=== PATIENT | male | born 1955 | race Caucasian/White ===

== ENCOUNTER 2018-07-03 10:44 | Inpatient (IN) ==
[2018-07-03] MEDS ORDERED: *HR* FentaNYL (PF) 100 MCG/2 ML VIAL ONE (12:54)
[2018-07-03] MEDS ORDERED: 0.9 % Sodium Chloride 1,000 ML ONE (12:56)
[2018-07-03] MEDS ORDERED: Artificial Tears SOLN 15 ML BOTTLE BOTH EYES PRN (13:47)
[2018-07-03] MEDS ORDERED: Naloxone 0.4 MG/ML INJ IVP PRN (13:47)
[2018-07-03] MEDS ORDERED: Dextrose Gel 15 GM/37.5 ML TUBE PO PRN ×2 (13:52)
[2018-07-03] MEDS ORDERED: D5% in Water 1,000 ML IVC PRN (13:52)
[2018-07-03] MEDS ORDERED: Vancomycin 500 MG in 0.9 % Sodium Chloride Mini Bag 100 ML IVPB ONE (13:59)
[2018-07-03] MEDS ORDERED: Norepinephrine 4 MG in D5% in Water 250 ML IVC SCH (14:00)
[2018-07-03] MEDS ORDERED: Furosemide 40 MG/4 ML VIAL IVP ONE (14:00)
--- NOTE | 2018-07-03 14:09 | Pulmonology History & Physical ---
<Fan Roberts S - Last Filed: 07/03/18 17:44> Date of Encounter: 07/03/18 History of Present Illness HPI: Mr. Botello is a 63 year old male Medications and Allergies Apixaban [Eliquis] 5 mg PO BID 05/15/18 [History] Aspirin Enteric Coated [Aspirin EC] 81 mg PO DAILY 05/15/18 [History] Atorvastatin [Lipitor] 40 mg PO HS 05/15/18 [History] Cyanocobalamin (B-12) [Vitamin B12] 1,000 mcg PO DAILY 05/15/18 [History] Fenofibrate Nanocrystallized [Fenofibrate] 162 mg PO DAILY 05/15/18 [History] Ferrous Gluconate 324 mg PO DAILY 05/15/18 [History] Fluticasone/Vilanterol [Breo Ellipta 100-25 Mcg INH] 1 each IH DAILY 05/15/18 [History] Gabapentin [Neurontin] 300 mg PO TID 05/15/18 [History] Losartan [Cozaar] 100 mg PO DAILY 05/15/18 [History] Metformin HCl [Glucophage] 1,000 mg PO BID 05/15/18 [History] Metoprolol Tartrate [Lopressor] 50 mg PO BID 05/15/18 [History] Pantoprazole Sodium [Protonix] 40 mg PO DAILY 05/15/18 [History] Tiotropium [Spiriva] 18 mcg IH DAILY 05/15/18 [History] Albuterol Sulfate [Ventolin Hfa] 18 gm IH Q4HR PRN 07/03/18 [History] Dulaglutide [Trulicity] 0.75 mg SQ QWEEK 07/03/18 [History] Insulin Degludec [Tresiba Flextouch U-100] 20 unit SQ DAILY 07/03/18 [History] amLODIPine [Norvasc] 5 mg PO DAILY 07/03/18 [History] Allergy/AdvReac Type Severity Reaction Status Date / Time No Known Allergies Allergy Verified 05/04/18 00:32 All Systems: The remainder of the systems were reviewed and are negative Physical Examination Vital Signs: Vital Signs, Last 4 Hours Temp Pulse Resp BP Pulse Ox 07/03/18 14:00 86 26 100/70 98 07/03/18 13:07 89 28 109/71 100 07/03/18 12:52 32 95 07/03/18 12:25 95.2 F L 86 37 113/81 96 Results - Laboratory Findings Abnormal lab findings: Abnormal lab results POC Glucose 369 mg/dL (70-99) H 07/03/18 12:13 Hemoglobin A1c 7.5 % (-5.6) H 07/03/18 14:25 Lactic Acid 2.3 mmol/L (0.5-2.2) H 07/03/18 14:25 Troponin I 1.40 ng/mL (< 0.04) H* 07/03/18 14:25 - Attending Attestation I saw and evaluated this patient and my medical decision-making was reviewed with the Resident Physician. I agree with the documented findings, disposition and treatment plan as described except to the extent set forth below. We independently had [id number] contact with the patient I spent 50 minutes of Critical Care time with this patient. It involved decision making of high complexity to assess, manipulate, and support vital organ system failure and/or to prevent further life threatening deterioration of the patient's condition. The time involved in the performance of separately reportable procedures was not counted toward critical care time. Patient seen and examined at bedside Labs, radiology, chart personally reviewed. Management was reviewed during multidisciplinary critical care rounds. 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 Pulm: Patient has oxygenation and ventilation issues most likely due to cardiogenic pulmonary edema complicated by aspiration pneumonia to do low tidal volume strategy to repeat arterial blood gas analysis. Cards: Patient has end STEMI complicated by systolic heart failure to consult cardiology to start on heparin drip. EKG shows active ST-T changes with acute ischemic changes. Patient currently hemodynamically stable if needed should be started on Levophed. FEN-GI: Nothing by mouth to start on PPI Renal: Labs and output reviewed ID: No with broad-spectrum antibiotics for multifocal pneumonia Heme/Onc: Labs reviewed Endo: Glucose Monitored Integ/MSK: Skin Care per routine ICU Nursing Protocol to prevent ulcers. Lines: All lines examined without evidence of infection : Dispo: Critically high suspicion for anoxic brain injury CODE: Full Code <Chelsy Hidalgo - Last Filed: 07/03/18 18:43> Date of Encounter: 07/03/18 Time of Encounter: 13:00 Assessment and Plan (1) Cardiac arrest Current visit: Yes Status: Acute Cardiac arrest -Achieved ROSC from PEA after 30 minutes of CPR by ED staff - reports she performed 25 minutes of CPR prior to EMS arrival -Patient intubated in [place] ED -Etiology unclear however may be related to cardiac. ST depressions on V4-V6 on EKG in [place]. -Labs significant for WBC 16.8, Hgb 10.5, lactic acid 7.8, troponin 0.98, creatinine of 1.41 -ABG shows respiratory acidosis of 7.04, CO2 90. Bicarbonate 25 -CT head shows chronic changes, no acute abnormal -CXR and CT chest performed and shows large right pleural effusion with progression of multifocal ground glass opacities which may be related to CHF or multifocal PNA Plan -Repeat troponin, lactic acid ordered and pending -Repeat EKG to further evaluate ischemia -Hypothermic protocol -Neuro consulted for EEG and evaluation for anoxic brain injury -Currently in NSR, requiring levophed for pressor support. See procedure note -Received 1L NS fluid resuscitation however will not give 30 mL/kg due to suspected CHF exacerbation (2) Septic shock Current visit: Yes Status: Acute Septic Shock - SIRS criteria with hypothermia at 95.2, RR 30s, WBC of 16.8 -Lactic acid at 7.8 in [place], trended to 2.3 -Suspect that this may be more related to cardiac shock vs septic -Suspected source: pulmonary with aspiration possible -Causative organism, unclear -Recent hospital admissions with previous PNA -CT and CXR findings as above -No previous cultures Plan -Blood cultures x2 -Sputum and UA with reflex cultures -Start vancomycin, zosyn, Levaquin, day 1 -Trend lactic acid -Fluids: initially 1L NS bolus but will hold remainder due to CHF -Strep pneumonia and legionella Ag -Central line placed and requiring levophed (3) Acute exacerbation of CHF (congestive heart failure) Current visit: Yes Status: Acute CHF exacerbation -Known history of CHF, most recent Echo on 05/16/18: EF 40-45% with moderately dilated LV. Moderate global systolic dysfunction -CXR 07/03/18: moderate right and mild left diffuse mixed interstitial and airspace opacities with small bilateral effusions, right greater than left -CT chest 07/03/18: moderate to large right-sided pleural effusion and trace left pleural effusion; interval progression multifocal ground-glass opacities in lungs bilaterally with mid to lower lung predominance; acute nondisplaced bilateral 2nd-8th anterior rib fractures related to recent CPR - BNP 1399 -Received 1L NS fluid resuscitation, but will not give 30 mL/kg due to suspected CHF exacerbation PLAN: - Repeat echocardiogram - Monitor I/O's Qualifiers: Heart failure type: systolic Qualified Code(s): I50.23 - Acute on chronic systolic (congestive) heart failure (4) NSTEMI (non-ST elevated myocardial infarction) Current visit: Yes Status: Acute Heparin gtt discussed with cardiology who recommends against it Troponins trending upwards: 0.98, 1.4, and 1.78--most likely the result of cardiac arrest ST depressions in leads V4-V6 Repeat EKG did not show worsening ST depressions Prognosis discussed with family, desire conservative management Plan: -Continue trending troponins (5) Acute and chronic respiratory failure Current visit: Yes Status: Acute -Most likely due to cardiogenic pulmonary edema, complicated by aspiration PNA and history of COPD -ABG shows respiratory acidosis of 7.04, CO2 90. Bicarbonate 25 -COPD on home oxygen -Intubated and on mechanical ventilation PLAN: -Repeat ABG - Lasix 40mg IV given x1 -Continue ventilatory support -As above for CHF Qualifiers: Respiratory failure complication: hypoxia and hypercapnia Qualified Code(s): J96.21 - Acute and chronic respiratory failure with hypoxia; J96.22 - Acute and chronic respiratory failure with hypercapnia (6) COPD (chronic obstructive pulmonary disease) Current visit: Yes Status: Acute Qualifiers: COPD type: unspecified COPD Qualified Code(s): J44.9 - Chronic obstructive pulmonary disease, unspecified (7) Diabetes Current visit: Yes Status: Chronic Sliding scale insulin Qualifiers: Diabetes mellitus type: type 2 Diabetes mellitus exterminator insulin use: unspecified exterminator insulin use status Diabetes mellitus complication status: with unspecified complications Qualified Code(s): E11.8 - Type 2 diabetes mellitus with unspecified complications (8) Afib Current visit: Yes Status: Chronic Eliquis 5mg PO BID at home Rate controlled Anticoag was discussed with cardiology who recommends not using heparin gtt Plan -Sub Q heparin for now until home meds verified -Monitor coags for hypothermia protocol Qualifiers: Atrial fibrillation type: paroxysmal Qualified Code(s): I48.0 - Paroxysmal atrial fibrillation (9) HCAP (healthcare-associated pneumonia) Current visit: Yes Status: Acute As above for Sepsis (10) DVT prophylaxis Current visit: Yes Status: Acute Sub Q heparin History of Present Illness Chief complaint: cardiac arrest HPI: Mr. Botello is a 63-year-old male with PMH atrial fibrillation on Eliquis, CHF, COPD on home oxygen, CAD, [place] (2 cardiac stents), CVA, diabetes, HLD, HTN, venous stasis who presented to [place] ED by EMS after cardiac arrest with ROSC. Arrest was witnessed at home by patients , who provided CPR, prior to EMS arrival. Patient rhythm on EMS arrival was PEA, he was intubated and received 2 rounds epinephrine before return of pulse. He lost his pulse again on arrival to ED and CPR was initiated, pulse returned, BP reported to be 149/89 and was in sinus rhythm. He was transferred to [facility] for further evaluation and management. Initial CBC in [place] showed WBC 16.8, no bands, hemoglobin 10.5, hematocrit 34.9, platelets 254. Metabolic panel notable for creatinine 1.41, glucose 423, lactic acid 7.8, troponin 0.98. ABG significant for pH 7.04, PCO2 90, PO2 65, and bicarbonate 24. Initial chest x-ray shows moderate right and mild left diffuse mixed interstitial and airspace opacities with small bilateral effusions, right greater than left. Head CT showed no acute intracranial hemorrhage. CT chest shows moderate to large right-sided pleural effusion and trace left pleural effusion as well as interval progression of multifocal ground-glass opacities in lungs bilaterally with mid to lower lung predominance; acute nondisplaced bilateral 2nd-8th anterior rib fractures related to recent CPR. Patient is currently intubated and unable to participate in interview, additional history gathered from patients and chart review. Per the patients , he had been up all night with elevated heart rate, slightly increased shortness of breath from baseline, and low oxygen saturation measured with home pulse ox. Patient was not complaining of chest pain, fevers, chills, or cough increased from baseline. She reports patient has been eating and drinking normally without difficulty or complaints of choking. Of note, patient had a stroke at the end of March 2018 affecting the right side and required PEG placement, which he hasnt been using recently and was scheduled to have discontinued next week. He was admitted early May for treatment of HCAP, recurrent aspiration PNA, and right-sided pleural effusion. Past Med Surg Social Fam HX - Past Medical History Medical history: atrial fibrillation, CHF, COPD, coronary artery disease, CVA, diabetes, hyperlipidemia, hypertension, venous stasis Psychiatric history: no psych history - Past Surgical History Surgical History: other Additional surgical history: Cardiac cath 2 Heart stents - Social History Smoking Status: Current every day smoker Smokeless Tobacco Status: No Alcohol use: unknown Drug use: none ROS unobtainable: due to endotracheal tube, due to mental status All Systems: The remainder of the systems were reviewed and are negative Physical Examination Vital Signs: Vital Signs, Last 4 Hours Temp Pulse Resp BP Pulse Ox 07/03/18 13:07 89 28 109/71 100 07/03/18 12:52 32 95 07/03/18 12:25 95.2 F L 86 37 113/81 96 Eyes: nonicteric ENT: other (Endotrachial tube present) Neck: supple, no JVD Effort: other (labored, on mechanical ventilation) Auscultation: bilateral: diminished breath sounds (right > left) Cardiovascular: other (regular rate, rhythm appears regular) Gastrointestinal: absent bowel sounds, soft, non-tender, other (distended) Extremities: no cyanosis, no clubbing, no ischemia or petechiae, cool, edema (1+ pitting bilaterally to mid-blackwood) Musculoskeletal: no deformities unable to assess due to mental status (Doesn't open eyes or follow commands; slight response to noxious stimuli), other (pupils unequal size, both reactive to light--left pupil slower to react) Results - Laboratory Findings Abnormal lab findings: Abnormal lab results POC Glucose 369 mg/dL (70-99) H 07/03/18 12:13
--- NOTE | 2018-07-03 14:12 | Procedure Note ---
<Fan Roberts S - Last Filed: 07/03/18 14:16> Procedure: I was present during the entire procedure assisted in critical portions of the procedure. <Pj Mancilla - Last Filed: 07/03/18 14:21> Date of procedure: 07/03/18 Pre-op diagnosis: Hypotension, s/p arrest Post-op diagnosis: same Procedure: Procedure Note: Central Venous Catheter Insertion Indication: Hypotension, arrest Attending Physician: Dr. Roberts Underwriting Assistant: Chelsy Hidalgo Assist: Pj Mancilla Consent: Detailed explanation of the procedure, treatment options, risks including but not limited to infection and bleeding, and benefits were explained to the and next of kin. A written informed consent was obtained. Technique: A time out was preformed identifying the correct procedure, the correct location with the nursing staff. The right neck was prepped with 2% chlorhexidine and draped with a full length sterile sheet in the usual fashion. The right internal jugular vein was accessed under ultrasound guidance with an 18 gauge thin wall needle. A triple lumen was inserted via the seldinger technique. Blood was withdrawn from all lumens and flushed with normal saline. The catheter was sutured in place and a sterile dressing was applied over the site prior to removal of drapes. The patient tolerated the procedure well and there were no complications. Chest x ray: No pneumothorax and end of catheter above right atrium EBL: 5 mL Complication: None Anesthesia: IV sedation Surgeon: Chelsy Hidalgo Was there an occupational therapist assistant present: Yes Tube Winder: Pj Mancilla Estimated blood loss (cc): 5 Specimen: none Pathology: none sent Condition: critical Disposition: ICU
[2018-07-03] MEDS ORDERED: Perflutren Lipid Microsphere 1.3 ML in 0.9 % Sodium Chloride 8.7 ML IVP ONE (14:33)
--- NOTE | 2018-07-03 14:38 | Neurology - Consult Note ---
Addendum entered and electronically signed by Fareed Armando MD 07/03/18 16:25: Patient seen and examined in the presence of Dr. Silvestre Velázquez and case discussed, and imaging studies reviewed together. I agree with his history taking, physical examination, assessment and plan. In [facility], the patient is a 63 year old man man with PMH significant for DM, HTN, CAD, atrial fibrillation, obesity who developed cardiopulmonary arrest, with cardiac down time about 25 minutes per medical team, who brought in from outside hospital intubated. Patient was successfully resuscitated and upon arrival to [facility] he has been having intermittent myoclonic jerking movement involving his whole body with features of decerebrate posturing every 5-8 seconds. Patient remained unr esponsive and been kept on Propofol sedation. Neurology was consulted to assess brain function and neurological prognosis. EEG was obtained and it was performed after discontinuation of Propofol 15-20 minutes. Patient is euthermic. EEG pattern showed diffuse persistent burst - suppression with ratio of 1:6-8 seconds with myoclonic jerking synchronous to his burst activity on the EEG. CT of head showed no acute bleeding but loss of white kincaid matter differentiation noted. Neurologically patient remains unresponsive to painful and verbal stimuli. Notices intermittent myoclonic jerking involving limbs and whole body with features of decerebrate posturing. pupils are midline and able to keep his eye closed, possible gag/cough reflexes. Limbs flaccid paralysed no other movements other than the myoclonic jerks The patient' physical examination, course of disease, EEG and CT of head findings are consistent with severe anoxic brain injury. Neurological prognosis is very poor. Impression and EEG results discussed with the patient and family members. Original Note: Date of Encounter: 07/03/18 Time of Encounter: 14:38 Assessment and Plan (1) Unresponsive state Current Visit: Yes Status: Acute - Currently unresponsive to verbal/tactile stimuli; on mechanical ventilation - Patient presented after going into cardiac arrest - Patient received CPR for approximately 25 minutes - Patient had return of spontaneous circulation with an elevated pulse - On arrival, patient was nonresponsive - Patients condition is possibly secondary to anoxic brain injury; although seizure activity cannot be ruled out at this time - Patient has had purposeless myoclonic jerks since arrival - Initially started on Levophed for hypotension and was sedated with propofol - Patient continued to have myoclonic jerks despite sedation Plan: - EEG is ordered to assess brain activity - Further management per pulmonology/critical care History of Present Illness HPI: Mr. Botello is a 63 year old male with a PMH of COPD O2 dependent, CHF, atrial fibrillation, diabetes mellitus, previous CVA requiring PEG tube placement, and previous NH Who presented to the ED in full cardiac arrest with ROSC after a witnessed arrest at home. Patient had reportedly collapsed on the bed earlier, and CPR was performed by EMS prior to arrival. She they confirmed cardiac arrest with a PEA rhythm. EMS was able to intubate the patient and establish IV access. 2 rounds of epinephrine, 1 amp of D50, and 2 A of bicarbonate, and 1 amp of calcium were given. On arrival, no initial pulse was able to be confirmed by staff, and CPR was continued. Patient received a second dose of epinephrine, on second pulse check patient appeared to be in cardiac arrest. On the next pulse check, palpable pulses present with a rate of 104. Per the patients , patient had been up all night with a high heart rate, low O2 saturation, and increased difficulty in breathing. Patients blood pressure dropped, and patient was started on levophed. Chest x-ray demonstrated pulmonary consolidation representing a possible pneumonia with a large right- sided pleural effusion. 12-lead EKG showed some ST depression in V4 and V5. Vital signs on arrival to [facility] are as follows: Temperature 96.2, pulse 91, respiratory rate 18, blood pressure 116/76, O2 sat 90. Patient was subsequently intubated and placed on mechanical ventilation. Central line was placed. Laboratory analysis demonstrated an elevated white count of 16.8. Arterial blood gas was performed, demonstrated an ABG pH of 7.04, PCO2 90, O2 65, sodium level was 134, creatinine 1.41, lactic acid 7.8, and troponin 0.98. Patient was seen and examined at bedside; review of systems is unobtainable due to patients mental status. Patients is at bedside; she reported that he has had increased shortness of breath from his baseline and low O2 saturation measured on pulse ox before he went into cardiac arrest. Patient is observed to have multiple myoclonic jerks. Past Med Surg Social Fam HX - Past Medical History Medical history: atrial fibrillation, CHF, COPD, coronary artery disease, CVA, diabetes, hyperlipidemia, hypertension, venous stasis Psychiatric history: no psych history - Past Surgical History Surgical History: other Additional surgical history: Cardiac cath 2 Heart stents - Social History Smoking Status: Current every day smoker Smokeless Tobacco Status: No Alcohol use: unknown Drug use: none Medications and Allergies Apixaban [Eliquis] 5 mg PO BID 05/15/18 [History] Aspirin Enteric Coated [Aspirin EC] 81 mg PO DAILY 05/15/18 [History] Atorvastatin [Lipitor] 40 mg PO HS 05/15/18 [History] Cyanocobalamin (B-12) [Vitamin B12] 1,000 mcg PO DAILY 05/15/18 [History] Fenofibrate Nanocrystallized [Fenofibrate] 162 mg PO DAILY 05/15/18 [History] Ferrous Gluconate 324 mg PO DAILY 05/15/18 [History] Fluticasone/Vilanterol [Breo Ellipta 100-25 Mcg INH] 1 each IH DAILY 05/15/18 [History] Gabapentin [Neurontin] 300 mg PO TID 05/15/18 [History] Losartan [Cozaar] 100 mg PO DAILY 05/15/18 [History] Metformin HCl [Glucophage] 1,000 mg PO BID 05/15/18 [History] Metoprolol Tartrate [Lopressor] 50 mg PO BID 05/15/18 [History] Pantoprazole Sodium [Protonix] 40 mg PO DAILY 05/15/18 [History] Tiotropium [Spiriva] 18 mcg IH DAILY 05/15/18 [History] Albuterol Sulfate [Ventolin Hfa] 18 gm IH Q4HR PRN 07/03/18 [History] Dulaglutide [Trulicity] 0.75 mg SQ QWEEK 07/03/18 [History] Insulin Degludec [Tresiba Flextouch U-100] 20 unit SQ DAILY 07/03/18 [History] amLODIPine [Norvasc] 5 mg PO DAILY 07/03/18 [History] Allergy/AdvReac Type Severity Reaction Status Date / Time No Known Allergies Allergy Verified 05/04/18 00:32 ROS unobtainable: due to mental status All Systems: The remainder of the systems were reviewed and are negative Physical Examination - Vital Signs Vital Signs: Initial Vital Signs Temp Pulse Resp BP Pulse Ox 95.2 F L 86 37 113/81 96 07/03/18 12:25 07/03/18 12:25 07/03/18 12:25 07/03/18 12:25 07/03/18 12:25 - Exam Exam: Eyes: Fixed pupils Lungs: Labored breathing, currently on mechanical ventilation, diminished breath sounds Other, myoclonic jerks - Neurologic Sensorimotor examination: other (Myoclonic jerks) Posture: other (Unable to assess) Reflex and gait examination: other (Unable to assess) Mental Status Examination: no spontaneous eye opening to voice or tactile stimulation Results - Laboratory Findings Abnormal lab findings: Abnormal lab results POC Glucose 369 mg/dL (70-99) H 07/03/18 12:13 Consult Discharge Plan - Plan Referrals: NONE,PCP [Primary Care Provider] -
[2018-07-03] MEDS: Levofloxacin 750 MG/150 ML 750 MG/150 ML BAG IVPB SCH (14:44)
[2018-07-03 14:54] LABS: Estimated Average Glucose 169 mg/dl; Hemoglobin A1C 7.5 %
[2018-07-03] MEDS ORDERED: *HR* Midazolam HCl 2 MG/2 ML VIAL IVP ONE (14:55)
[2018-07-03] MEDS: Insulin LISPRO 300 UNITS/3 ML VIAL SQ SCH ×3 (14:59→23:06)
[2018-07-03] MEDS: Artificial Tears SOLN 15 ML BOTTLE BOTH EYES SCH ×3 (15:00→23:05)
[2018-07-03] MEDS ORDERED: *HR* Heparin 5,000 UNIT/ML VIAL IVP PRN ×2 (15:15)
[2018-07-03] MEDS ORDERED: *HR* Heparin 5,000 UNIT/ML VIAL IVP ONE (15:15)
[2018-07-03] MEDS ORDERED: Heparin 25,000 UNIT/500 ML D5W 25,000 UNIT/500 ML BAG IVC SCH (15:15)
[2018-07-03 15:30] LABS: Bilirubin,Urine Negative (Negative); Blood,Urine Large (Negative); Clarity,Urine Turbid (Clear); Color,Urine Yellow (Yellow); Glucose,Urine (UA) 100 mg/dL (Normal); Ketones,Urine Negative (Negative); Leukocyte Esterase,Urine Trace (Negative); Nitrite,Urine Negative (Negative); PH,Urine 5.5 pH Units (5.0-8.0); Protein,Urine >=300 mg/dL (Neg-Trace); Specific Gravity,Urine 1.017 (1.010-1.025); Urobilinogen,Urine Normal (Normal)
[2018-07-03 15:32] LABS: Squamous Epithelial Cell,Urine Many per lpf (None-Few)
[2018-07-03 15:59] LABS: Bacteria,Urine Few per hpf (None-Few); Granular Casts,Urine Few per lpf (None Seen)
[2018-07-03 16:00] LABS: RBC,Urine 15-30 per hpf (0-3); WBC,Urine 15-30 per hpf (0-3)
[2018-07-03 16:13] LABS: ABG Base Excess 0 mEq/L (-2 to 3); ABG HCO3 26 mEq/L (21-27); ABG Oxygen Saturation 90 % (95-98); ABG PCO2 47 mmHg (35-45); ABG PH 7.35 pH Units (7.32-7.45); ABG PO2 61 mmHg (85-104); ABG TCO2 28 mEq/L (20-26); Blood Gas Modality ASSIST CONTROL; Blood Gas PEEP 5 cm H2O; Blood Gas Respiration Rate 12; Blood Gas VT 500 cc
--- NOTE | 2018-07-03 16:23 | EEG/EMG/Oth Biometrics Report ---
EEG Procedure Report Date of procedure: 07/03/18 EEG Procedure: Routine EEG Procedure Note: Medication: no anticonvulsants listed. Propofol drip was discontinued approximately 15-20 units prior to EEG recording. Report: This EEG was acquired with standard international 10-20 electrode placement system with EKG recording. The background activity during this EEG was replaced by diffuse suppression with intermittent burst activity. The burst activity last around one second in duration and followed by prolonged diffuse suppression lasting more than 6-8 seconds in duration. No reactivity seen during the recording. Photic stimulation produced no abnormalities. HV not performed during this study. EKG tracing showed no sinus rhythm. Impression: This is a severely abnormal EEG showing burst-suppression pattern with burst:suppression ratio of 1 second of burst : 6-8 seconds of suppression Clinical Correlation: This EEG is consistent with severe diffuse neuronal dysfunction characterized by presence of burst suppression pattern with burst:suppression ratio of 1:6-8 seconds. The pattern is usually associated with poor neurological prognosis. Please note, the pattern can be seen in medically induced coma with sedatives and hypothermia. Clinical correlation advised. The EEG result is communicated with the primary medical team and family members.
[2018-07-03 17:26] LABS: INR 1.3; Prothrombin Time 14.4 Seconds (9.4-12.1)
[2018-07-03 17:27] LABS: Activated Partial Thrombo Time 34.5 Seconds (26.0-36.0)
--- NOTE | 2018-07-03 17:31 | Event Note ---
Date of Encounter: 07/03/18 Time of Encounter: 16:20 Results from EEG returned and this was discussed with neurology. Pattern suggests burst suppression with overall poor prognosis and likely severe anoxic brain injury. This was discussed with the family. If the family's wishes at this time that patient's CODE STATUS will be changed to DNR CCA. Patient remains intubated and sedated with propofol and fentanyl will be added for extra comfort. Patient's family is waiting for additional son to arrive before they make further decisions regarding his care and possible withdrawal of care. We did discuss options for further care and patient state that they would not like to be aggressive at this time and continue current course. All questions were answered.
[2018-07-03] MEDS: FentaNYL (PF) 1,000 MCG in 0.9 % Sodium Chloride 80 ML IVC SCH (17:44)
[2018-07-03] MEDS: Vecuronium 50 MG in 0.9 % Sodium Chloride 200 ML IVC SCH (17:59)
[2018-07-03] MEDS: *HR* Heparin 5,000 UNIT/ML VIAL SQ SCH (17:59)
[2018-07-03] MEDS: Piperacillin/Tazobactam 3.375 GM in 0.9 % Sodium Chloride Mini Bag 100 ML IVPB SCH (19:30)
[2018-07-03] MEDS: Chlorhexidine Rinse 15 ML MOUTHWASH MM SCH (19:31)
[2018-07-04] MEDS: Vecuronium 50 MG in 0.9 % Sodium Chloride 200 ML IVC SCH (02:02)
[2018-07-04] MEDS: Piperacillin/Tazobactam 3.375 GM in 0.9 % Sodium Chloride Mini Bag 100 ML IVPB SCH ×2 (03:01→11:33)
[2018-07-04] MEDS: Artificial Tears SOLN 15 ML BOTTLE BOTH EYES SCH ×4 (03:01→16:21)
[2018-07-04 03:45] LABS: Basophils % 0.1 %; Eosinophils # 0.1 K/mcL (0.0-0.6); Eosinophils % 0.5 %; Hematocrit 31.2 % (37.5-50.1); Hemoglobin 9.6 g/dL (12.9-16.9); Immature Granulocytes % 0.6 % (0-4); Lymphocytes # 1.5 K/mcL (0.6-4.6); Lymphocytes % 13.8 %; Mean Corpuscular HGB Conc 30.8 g/dL (31.6-35.5); Mean Corpuscular Hemoglobin 25.3 pg (28.0-33.3); Mean Corpuscular Volume 82.1 fL (83.0-100.0); Mean Platelet Volume 9.6 fL (9.4-12.4); Monocytes # 0.7 K/mcL (0.0-1.3); Neutrophils # 8.3 K/mcL (1.6-8.9); Platelet Count 244 K/mcL (140-400); Red Cell Distribution Width 17.4 % (11.5-14.5)
[2018-07-04 03:51] LABS: INR 1.3; Prothrombin Time 14.8 Seconds (9.4-12.1)
[2018-07-04 03:58] LABS: BUN/Creatinine Ratio 21 (6-26); Blood Urea Nitrogen 27 mg/dL (8-23); Calcium 8.8 mg/dL (8.6-10.3); Carbon Dioxide 28 mEq/L (23-29); Chloride 105 mEq/L (98-107); Glucose 100 mg/dL (70-105); Osmolality,Calculated 295 (280-300); Sodium 140 mEq/L (136-145); Triglycerides 161 mg/dL (< 150); eGFR For Non-African Americans 56 (> 60)
[2018-07-04 04:51] LABS: ABG Base Excess 1 mEq/L (-2 to 3); ABG HCO3 28 mEq/L (21-27); ABG Oxygen Saturation 93 % (95-98); ABG PCO2 59 mmHg (35-45); ABG PH 7.29 pH Units (7.32-7.45); ABG PO2 76 mmHg (85-104); ABG TCO2 30 mEq/L (20-26); Blood Gas Modality ASSIST CONTROL; Blood Gas PEEP 10 cm H2O; Blood Gas Respiration Rate 12; Blood Gas VT 500 cc
[2018-07-04] MEDS: Insulin LISPRO 300 UNITS/3 ML VIAL SQ SCH (05:02)
[2018-07-04] MEDS: *HR* Heparin 5,000 UNIT/ML VIAL SQ SCH (05:07)
[2018-07-04] MEDS ORDERED: Furosemide 40 MG/4 ML VIAL IVP SCH (08:00)
--- NOTE | 2018-07-04 08:03 | Pulmonology Progress Note ---
<Pj Mancilla - Last Filed: 07/04/18 11:36> Date of Encounter: 07/04/18 Time of Encounter: 07:58 Assessment and Plan (1) Cardiac arrest Current Visit: Yes Status: Acute Cardiac arrest -Achieved ROSC from [facility] after 30 minutes of CPR by ED staff - reports she performed 25 minutes of CPR prior to EMS arrival -Patient intubated in [facility] ED -Etiology unclear however may be related to cardiac. ST depressions on V4-V6 on EKG in [facility]. Persistent on repeat EKG here -Labs significant for WBC 16.8, Hgb 10.5, lactic acid 7.8, troponin 0.98, creatinine of 1.41 -ABG shows respiratory acidosis of 7.04, CO2 90. Bicarbonate 25 -CT head shows chronic changes, no acute abnormal -CXR and CT chest performed and shows large right pleural effusion with progression of multifocal ground glass opacities which may be related to CHF or multifocal PNA - Troponin peaked at 2.44, most recently 1.95 - ABG improved on Vent. pH most recently 7.29 with CO2 59. Bicarb 28 - Lactic acid trened and most recently 1.3 - EEG shows burst suppression pattern, overall very poor prognosis and sign of severe anoxic brain injury. Family aware. Plan -Continue Hypothermic protocol -Neuro consulted and following. -Currently in NSR, no longer requiring levophed for pressor support. See procedure note -Received 1L NS fluid resuscitation however will not give 30 mL/kg due to suspected CHF exacerbation Per , family meeting to happen today regarding withdrawal of care. Will continue supportive care until further decision is made. (2) Acute and chronic respiratory failure Current Visit: Yes Status: Acute Likely secondary to CHF exacerbation vs PNA with possible aspiration component. -Known history of CHF, most recent Echo on 05/16/18: EF 40-45% with moderately dilated LV. Moderate global systolic dysfunction - Stat Echo performed yesterday 07/04/18. EF 40%, mild LVH, moderate global systolic dysfunction. -CXR 07/03/18: moderate right and mild left diffuse mixed interstitial and airspace opacities with small bilateral effusions, right greater than left -CT chest 07/03/18: moderate to large right-sided pleural effusion and trace left pleural effusion; interval progression multifocal ground-glass opacities in lungs bilaterally with mid to lower lung predominance; acute nondisplaced bilateral 2nd-8th anterior rib fractures related to recent CPR - BNP 1399 -Received 1L NS fluid resuscitation, but will not give 30 mL/kg due to suspected CHF exacerbation - Diuresed well yesterday with 1L out after 40 lasix. PLAN: - Will continue lasix 40 mg IV BID. - Monitor renal function - Continue vent support. - Monitor I/O's Qualifiers: Respiratory failure complication: hypoxia and hypercapnia Qualified Code(s) : J96.21 - Acute and chronic respiratory failure with hypoxia; J96.22 - Acute and chronic respiratory failure with hypercapnia (3) Acute exacerbation of CHF (congestive heart failure) Current Visit: Yes Status: Acute as above Qualifiers: Heart failure type: systolic Qualified Code(s): I50.23 - Acute on chronic systolic (congestive) heart failure (4) Septic shock Current Visit: Yes Status: Acute Septic Shock - SIRS criteria with hypothermia at 95.2, RR 30s, WBC of 16.8 on admission -Lactic acid at 7.8 in [facility], trended to 2.3 - This AM, vitals improved, WBC of 10.6, lactic acid 1.3. SIRS resolved. -Suspect that this may be more related to cardiac shock vs septic -Suspected source: pulmonary with aspiration possible -Causative organism, unclear -Recent hospital admissions with previous PNA -CT and CXR findings as above -No previous cultures in blood or sputum. - Patient has previous CVA with resulting PEG tube placement, reports that he has not used this in months. Has been taking PO intake without coughing or gagging, however suspicion for aspiration component is high Sputum culture obtained Blood cultures x2 in [facility], prelim negative MRSA nasal swab positive UA shows protein, blood, leukocyte esterase, epithelial cells and few casts. unlikely source. Strep pneumonia and legionella Ag negative. Plan -Continue vancomycin, zosyn, Levaquin, day 2 -Fluids: initially 1L NS bolus but will hold remainder due to CHF. Shock currently resolved. -Central line placed but no longer requiring levophed (5) NSTEMI (non-ST elevated myocardial infarction) Current Visit: Yes Status: Acute As above, likely secondary to cardiac arrest Troponin of 1.40/1.78/2.44/1.95 Not on heparin gtt as below Conservative management per family last [facility] 2008 with stent x2 (6) ROLANDO (acute kidney injury) Current Visit: Yes Status: Acute - No documented CKD per chart review - BUN/Cr in [place] of 07/08.41 - Baseline Cr appears to be around 0.9-1.0 - Likely secondary to arrest and hypoperfusion - Improved today to 27/.30 after 1L NS bolus - I/O of -231 since admission - Casts in UA and blood, possible ATN as well. Will continue to monitor at this time Avoid fluids given tenuous volume status Avoid nephrotoxins Renally dose medications Continue to diurese as kidneys allow. Good urine output so far. (7) Afib Current Visit: Yes Status: Chronic rate controlled, currently in NSR on home eliquis not giving AC at this time as he is on hypothermic protocol and high risk for bleeding will give prophylactic dose of heparin heparin gtt for NSTEMI discussed with cardiology, advised against it as he is on hypothermic and had eliquis prior to arrival Qualifiers: Atrial fibrillation type: paroxysmal Qualified Code(s): I48.0 - Paroxysmal atrial fibrillation (8) Diabetes Current Visit: Yes Status: Chronic reasonably well controlled. 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 likely related to CHF Conservative management at this time. diuretics as above (10) HCAP (healthcare-associated pneumonia) Current Visit: Yes Status: Acute as above for sepsis (11) COPD (chronic obstructive pulmonary disease) Current Visit: Yes Status: Chronic Known history of COPD and oxygen dependent at home Continues to smoke prior to admission respiratory failure more likely related to CHF and arrest vs PNA. Qualifiers: COPD type: unspecified COPD Qualified Code(s): J44.9 - Chronic obstructive pulmonary disease, unspecified (12) Abnormal EEG Current Visit: Yes Status: Acute as above for arrest burst suppression pattern neuro aware family aware poor prognosis (13) DVT prophylaxis Current Visit: Yes Status: Acute Sub Q heparin Subjective Principal diagnosis: Arrest Interval history: Patient was seen and examined at bedside this morning. He remains intubated, sedated and hypothermic protocol. Family is present at bedside and we discussed again his prognosis. Family is aware that there will likely be a poor, if any recovery. They state they will have a family discussion some time today regarding possible withdrawal of care. There is a additional daughter coming from [place] however if she is not able to make it up soon they state she is understanding and a decision will be made without her. Objective PUL Vital signs: Last Vital Signs Temp 92.3 F L 07/04/18 06:00 Pulse 79 07/04/18 06:00 Resp 12 07/04/18 07:20 BP 101/70 07/04/18 07:20 Pulse Ox 100 07/04/18 07:20 Gen.: Vitals noted. No acute distress. Intubated and sedated. HEENT: Pupils constricted and nonreactive. ET tube in place, Normocephalic, atraumatic Neck: Supple. No adenopathy. Cardiac: RRR, no murmur, +S1/S2, 2+ BLE edema Pulmonary: Mechanical ventilation, decreased breath sounds, possible scattered Rales in bases. equal chest expansion Abdomen: soft, BS hypoactive, no guarding, no palpable HSM, PEG tube present Skin: Cold and dry, no visible lesions. MSK: ROM not assessed, no joint swelling noted, gait no assessed while in bed. Neuro: Intubated and sedated. Few myoclonic jerks. Absent Babinski reflexes. Psych: Unable to assess further Ventilator Settings Ventilator Settings: Ventilator Settings, Last 8 Hours Ventilator Tidal Volume 500 Setting Ventilator Tidal Volume 500 Setting Ventilator Tidal Volume 500 Setting Ventilator Tidal Volume 500 Setting Ventilator Tidal Volume 500 Setting Ventilator Tidal Volume 500 Setting Ventilator Tidal Volume 500 Setting Ventilator Tidal Volume 500 Setting Ventilator Tidal Volume 500 Setting Ventilator Tidal Volume 500 Setting Ventilator Tidal Volume 500 Setting Ventilator Tidal Volume 500 Setting Ventilator Respiratory Rate 14 Setting Ventilator Respiratory Rate 12 Setting Ventilator Respiratory Rate 12 Setting Ventilator Respiratory Rate 12 Setting Ventilator Respiratory Rate 12 Setting Ventilator Respiratory Rate 12 Setting Ventilator Respiratory Rate 12 Setting Ventilator Respiratory Rate 12 Setting Ventilator Respiratory Rate 12 Setting Ventilator Respiratory Rate 12 Setting Ventilator Respiratory Rate 12 Setting Ventilator Respiratory Rate 12 Setting Actual Respiratory Rate 14 Actual Respiratory Rate 12 Actual Respiratory Rate 12 Actual Respiratory Rate 12 Actual Respiratory Rate 12 Actual Respiratory Rate 12 Actual Respiratory Rate 12 Actual Respiratory Rate 12 Actual Respiratory Rate 12 Actual Respiratory Rate 12 Actual Respiratory Rate 12 Positive End Expiratory 10 Pressure Positive End Expiratory 10 Pressure Positive End Expiratory 10 Pressure Positive End Expiratory 10 Pressure Positive End Expiratory 10 Pressure Positive End Expiratory 10 Pressure Positive End Expiratory 10 Pressure Positive End Expiratory 10 Pressure Positive End Expiratory 10 Pressure Positive End Expiratory 10 Pressure Positive End Expiratory 10 Pressure Positive End Expiratory 10 Pressure Peak Inspiratory Airway 43 Pressure Peak Inspiratory Airway 44 Pressure Peak Inspiratory Airway 44 Pressure Peak Inspiratory Airway 44 Pressure Peak Inspiratory Airway 44 Pressure Peak Inspiratory Airway 44 Pressure Peak Inspiratory Airway 43 Pressure Peak Inspiratory Airway 43 Pressure Peak Inspiratory Airway 43 Pressure Peak Inspiratory Airway 43 Pressure Peak Inspiratory Airway 44 Pressure Results - Laboratory Findings CBC and BMP: 07/04/18 03:30 07/04/18 10:23 ABG ABG pH 7.29 pH Units (7.32-7.45) L 07/04/18 04:47 ABG pCO2 59 mmHg (35-45) H 07/04/18 04:47 ABG pO2 76 mmHg (85-104) L 07/04/18 04:47 ABG O2 Saturation 93 % (95-98) L 07/04/18 04:47 PT/INR, D-dimer PT 14.8 Seconds (9.4-12.1) H 07/04/18 03:30 Abnormal lab findings: Abnormal lab results RBC 3.80 M/mcL (4.19-5.50) L 07/04/18 03:30 Hgb 9.6 g/dL (12.9-16.9) L 07/04/18 03:30 Hct 31.2 % (37.5-50.1) L 07/04/18 03:30 MCV 82.1 fL (83.0-100.0) L 07/04/18 03:30 MCH 25.3 pg (28.0-33.3) L 07/04/18 03:30 MCHC 30.8 g/dL (31.6-35.5) L 07/04/18 03:30 RDW 17.4 % (11.5-14.5) H 07/04/18 03:30 PT 14.8 Seconds (9.4-12.1) H 07/04/18 03:30 Fibrinogen 524 mg/dL (169-393) H 07/03/18 16:50 ABG pH 7.29 pH Units (7.32-7.45) L 07/04/18 04:47 ABG pCO2 59 mmHg (35-45) H 07/04/18 04:47 ABG pO2 76 mmHg (85-104) L 07/04/18 04:47 ABG HCO3 28 mEq/L (21-27) H 07/04/18 04:47 ABG Total CO2 30 mEq/L (20-26) H 07/04/18 04:47 ABG O2 Saturation 93 % (95-98) L 07/04/18 04:47 BUN 27 mg/dL (8-23) H 07/04/18 03:30 Est GFR (Non-Af Amer) 56 (> 60) L 07/04/18 03:30 POC Glucose 104 mg/dL (70-99) H 07/04/18 05:52 Hemoglobin A1c 7.5 % (-5.6) H 07/03/18 14:25 Phosphorus 4.9 mg/dL (2.7-4.5) H 07/03/18 16:50 Troponin I 1.95 ng/mL (< 0.04) H* 07/04/18 03:30 B-Natriuretic Peptide 1399 pg/mL (Less than 100) H 07/03/18 14:25 Triglycerides 161 mg/dL (< 150) H 07/04/18 03:30 Urine Clarity Turbid (Clear) A 07/03/18 15:20 Urine Protein >=300 mg/dL (Neg-Trace) H 07/03/18 15:20 Urine Glucose (UA) 100 mg/dL (Normal) H 07/03/18 15:20 Urine Blood Large (Negative) H 07/03/18 15:20 Ur Leukocyte Esterase Trace (Negative) H 07/03/18 15:20 Urine Microscopic RBC 15-30 per hpf (0-3) H 07/03/18 15:20 Urine Microscopic WBC 15-30 per hpf (0-3) H 07/03/18 15:20 Ur Squamous Epith Cells Many per lpf (None-Few) H 07/03/18 15:20 Granular Casts Few per lpf (None Seen) H 07/03/18 15:20 Ur Culture Indicated? NO. (NO) A 07/03/18 15:20 Nasal Screen MRSA (PCR) Positive (Negative) A 07/03/18 15:50 - Microbiology Findings Microbiology Findings: Microbiology, Last 48 Hours 07/03/18 21:00 Sputum Culture - Preliminary Sputum 07/03/18 21:00 Legionella Antigen - Final Urine,[place] Streptococcus pneumoniae Antigen (M - Final - Clinical Findings Intake & Output: Intake & Output 07/03/18 07/03/18 07/04/18 15:59 23:59 07:59 Intake Total 217 / 217 359 / 359 643 / 643 Output Total 1000 / 1000 400 / 400 Balance 217 / 217 -641 / -641 243 / 243 Weight 88.7 kg 90 kg Consult Discharge Plan - Plan Referrals: NONE,PCP [Primary Care Provider] - <Fan Roberts S - Last Filed: 07/04/18 13:38> Date of Encounter: 07/04/18 Objective PUL Vital signs: Last Vital Signs Temp 94.3 F L 07/04/18 13:00 Pulse 68 07/04/18 13:00 Resp 18 07/04/18 13:00 BP 111/70 07/04/18 13:00 Pulse Ox 99 07/04/18 13:00 Ventilator Settings Ventilator Settings: Ventilator Settings, Last 8 Hours Ventilator Tidal Volume 500 Setting Ventilator Tidal Volume 500 Setting Ventilator Tidal Volume 500 Setting Ventilator Tidal Volume 500 Setting Ventilator Tidal Volume 500 Setting Ventilator Tidal Volume 500 Setting Ventilator Tidal Volume 500 Setting Ventilator Tidal Volume 500 Setting Ventilator Tidal Volume 500 Setting Ventilator Respiratory Rate 18 Setting Ventilator Respiratory Rate 18 Setting Ventilator Respiratory Rate 18 Setting Ventilator Respiratory Rate 18 Setting Ventilator Respiratory Rate 18 Setting Ventilator Respiratory Rate 18 Setting Ventilator Respiratory Rate 14 Setting Ventilator Respiratory Rate 18 Setting Ventilator Respiratory Rate 12 Setting Actual Respiratory Rate 18 Actual Respiratory Rate 18 Actual Respiratory Rate 18 Actual Respiratory Rate 18 Actual Respiratory Rate 18 Actual Respiratory Rate 18 Actual Respiratory Rate 14 Actual Respiratory Rate 18 Actual Respiratory Rate 12 Positive End Expiratory 10 Pressure Positive End Expiratory 10 Pressure Positive End Expiratory 10 Pressure Positive End Expiratory 10 Pressure Positive End Expiratory 10 Pressure Positive End Expiratory 10 Pressure Positive End Expiratory 10 Pressure Positive End Expiratory 10 Pressure Positive End Expiratory 10 Pressure Peak Inspiratory Airway 37 Pressure Peak Inspiratory Airway 37 Pressure Peak Inspiratory Airway 35 Pressure Peak Inspiratory Airway 33 Pressure Peak Inspiratory Airway 33 Pressure Peak Inspiratory Airway 33 Pressure Peak Inspiratory Airway 43 Pressure Peak Inspiratory Airway 33 Pressure Peak Inspiratory Airway 44 Pressure Results - Laboratory Findings CBC and BMP: 07/04/18 03:30 07/04/18 10:23 ABG ABG pH 7.41 pH Units (7.32-7.45) D 07/04/18 10:03 ABG pCO2 43 mmHg (35-45) 07/04/18 10:03 ABG pO2 80 mmHg (85-104) L 07/04/18 10:03 ABG O2 Saturation 96 % (95-98) 07/04/18 10:03 PT/INR, D-dimer PT 13.9 Seconds (9.4-12.1) H 07/04/18 10:23 Abnormal lab findings: Abnormal lab results RBC 3.80 M/mcL (4.19-5.50) L 07/04/18 03:30 Hgb 9.6 g/dL (12.9-16.9) L 07/04/18 03:30 Hct 31.2 % (37.5-50.1) L 07/04/18 03:30 MCV 82.1 fL (83.0-100.0) L 07/04/18 03:30 MCH 25.3 pg (28.0-33.3) L 07/04/18 03:30 MCHC 30.8 g/dL (31.6-35.5) L 07/04/18 03:30 RDW 17.4 % (11.5-14.5) H 07/04/18 03:30 PT 13.9 Seconds (9.4-12.1) H 07/04/18 10:23 APTT 36.7 Seconds (26.0-36.0) H 07/04/18 10:23 Fibrinogen 456 mg/dL (169-393) H 07/04/18 10:23 ABG pO2 80 mmHg (85-104) L 07/04/18 10:03 ABG Total CO2 29 mEq/L (20-26) H 07/04/18 10:03 BUN 26 mg/dL (8-23) H 07/04/18 10:23 Est GFR (Non-Af Amer) 59 (> 60) L 07/04/18 10:23 Glucose 193 mg/dL (70-105) H 07/04/18 10:23 POC Glucose 141 mg/dL (70-99) H 07/04/18 12:26 Hemoglobin A1c 7.5 % (-5.6) H 07/03/18 14:25 Calcium 8.3 mg/dL (8.6-10.3) L 07/04/18 10:23 Troponin I 1.95 ng/mL (< 0.04) H* 07/04/18 03:30 B-Natriuretic Peptide 1399 pg/mL (Less than 100) H 07/03/18 14:25 Serum Total Protein 5.5 g/dL (6.4-8.9) L 07/04/18 10:23 Albumin 2.8 g/dL (3.5-5.7) L 07/04/18 10:23 Albumin/Globulin Ratio 1.0 (1.1-2.2) L 07/04/18 10:23 Triglycerides 161 mg/dL (< 150) H 07/04/18 03:30 Urine Clarity Turbid (Clear) A 07/03/18 15:20 Urine Protein >=300 mg/dL (Neg-Trace) H 07/03/18 15:20 Urine Glucose (UA) 100 mg/dL (Normal) H 07/03/18 15:20 Urine Blood Large (Negative) H 07/03/18 15:20 Ur Leukocyte Esterase Trace (Negative) H 07/03/18 15:20 Urine Microscopic RBC 15-30 per hpf (0-3) H 07/03/18 15:20 Urine Microscopic WBC 15-30 per hpf (0-3) H 07/03/18 15:20 Ur Squamous Epith Cells Many per lpf (None-Few) H 07/03/18 15:20 Granular Casts Few per lpf (None Seen) H 07/03/18 15:20 Ur Culture Indicated? NO. (NO) A 07/03/18 15:20 Nasal Screen MRSA (PCR) Positive (Negative) A 07/03/18 15:50 - Microbiology Findings Microbiology Findings: Microbiology, Last 48 Hours 07/03/18 21:00 Sputum Culture - Preliminary Sputum 07/03/18 21:00 Legionella Antigen - Final Urine,[place] Streptococcus pneumoniae Antigen (M - Final - Clinical Findings Intake & Output: Intake & Output 07/03/18 07/04/18 07/04/18 23:59 07:59 15:59 Intake Total 359 / 359 843 / 843 240 / 240 Output Total 1000 / 1000 650 / 650 425 / 425 Balance -641 / -641 193 / 193 -185 / -185 Weight 90 kg - Attending Attestation Attending Attestation I saw and evaluated this patient and my medical decision-making was reviewed with the Resident Physician. I agree with the documented findings, disposition and treatment plan as described except to the extent set forth below. We independently had [id number] contact with the patient I spent 35 minutes of Critical Care time with this patient. It involved decision making of high complexity to assess, manipulate, and support vital organ system failure and/or to prevent further life threatening deterioration of the patient's condition. The time involved in the performance of separately reportable procedures was not counted toward critical care time. Patient seen and examined at bedside Labs, radiology, chart personally reviewed. Management was reviewed during multidisciplinary critical care rounds. 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 07/04 patient has targeted therapeutic hypothermia Intubated and ventilated with sedation patient has clinical and ancillary test evidence of anoxic brain in jury. Pulm: Patient has oxygenation and ventilation issues most likely due to cardiog enic pulmonary edema complicated by aspiration pneumonia to do low tidal volume strategy to repeat arterial blood gas analysis. 07/04 patient had hypercarbia in today's blood gas analysis adjust the respiratory rate increase the minute ventilation by 30%. Help normalizing the carbon dioxide is normocapnia is important in the management of increased ICP possible due to anoxic brain injury Cards: Patient has N STEMI complicated by systolic heart failure to consult cardiology to start on heparin drip. EKG shows active ST-T changes with acute ischemic changes. Patient currently hemodynamically stable if needed should be started on Levophed. 07/04 borderline hypotensive yesterday night has NSTEMI touched base with cardiology patient is not a candidate for percutaneous coronary intervention currently he is hemodynamically stable FEN-GI: To continue PPI. Advance diet as tolerated per nutrition. Renal: Labs and output reviewed ID: To cover with with broad-spectrum antibiotics for multifocal pneumonia Nasal Screen positive for MRSA Heme/Onc: Labs reviewed Endo: Glucose Monitored Integ/MSK: Skin Care per routine ICU Nursing Protocol to prevent ulcers. Lines: All lines examined without evidence of infection : Dispo: Critically ill poor prognosis for meaningful neurological recovery CODE: [id number]
--- NOTE | 2018-07-04 08:09 | Sepsis Event Note ---
Sepsis Reassessment Note - Evaluation Sepsis Screen: No Definite Risk Current Stage of Sepsis: septic shock Possible Source of Sepsis: pulmonary - Focused Exam Date of Encounter: 07/03/18 Time of Encounter: 17:30 Vital Signs: Vital Signs Temp Pulse Resp BP Pulse Ox 07/04/18 07:20 12 101/70 100 07/04/18 07:00 94.1 F L 70 14 101/70 100 07/04/18 06:00 92.3 F L 79 12 91/64 97 07/04/18 05:03 12 91/64 97 07/04/18 05:00 93.2 F L 71 12 90/65 100 07/04/18 04:04 93.5 F L 75 12 121/80 100 07/04/18 03:45 12 102/69 100 07/04/18 03:00 95 F L 96 12 139/87 100 07/04/18 02:00 93.2 F L 93 12 96/66 98 07/04/18 01:05 12 96/66 96 07/04/18 01:01 92.1 F L 79 12 89/63 96 07/04/18 00:00 92.3 F L 67 12 103/69 96 07/03/18 23:51 12 103/69 95 07/03/18 23:00 91.4 F L 58 12 107/71 97 07/03/18 22:03 92.3 F L 67 12 112/74 98 07/03/18 21:27 12 142/88 98 07/03/18 21:09 93.2 F L 82 12 141/85 98 07/03/18 20:45 94.1 F L 83 12 142/85 98 07/03/18 20:30 95.3 F L 90 12 142/90 98 07/03/18 20:15 96.3 F L 95 12 147/93 98 Respiratory Exam: Present: crackles, decreased breath sounds, patient mechanically Cardiovascular Exam: Present: RRR, S1, S2 Capillary Refill: < 2 seconds Peripheral Pulse Strength: 1+ faint Peripheral Pulse Location: Radial Skin Exam: pale - Reassessment Comments Comments: Patient in hypothermic protocol. Intermittently requiring vasopressor support. Re-assessment completed on 07/03/18.
[2018-07-04] MEDS: *HR* Dextrose 50 % in Water (Syg) 50 ML SYRINGE IVP PRN ×2 (08:15→08:53)
[2018-07-04] MEDS: Chlorhexidine Rinse 15 ML MOUTHWASH MM SCH (08:21)
[2018-07-04] MEDS: Levofloxacin 750 MG/150 ML 750 MG/150 ML BAG IVPB SCH (08:21)
[2018-07-04] MEDS ORDERED: Pantoprazole 40 MG VIAL IVP SCH (09:00)
[2018-07-04 10:07] LABS: ABG Base Excess 2 mEq/L (-2 to 3); ABG HCO3 27 mEq/L (21-27); ABG Oxygen Saturation 96 % (95-98); ABG PCO2 43 mmHg (35-45); ABG PH 7.41 pH Units (7.32-7.45); ABG PO2 80 mmHg (85-104); ABG TCO2 29 mEq/L (20-26); Blood Gas PEEP 10 cm H2O; Blood Gas Respiration Rate 18; Blood Gas VT 500 cc
[2018-07-04 10:49] LABS: INR 1.2; Prothrombin Time 13.9 Seconds (9.4-12.1)
[2018-07-04 10:50] LABS: Activated Partial Thrombo Time 36.7 Seconds (26.0-36.0)
[2018-07-04 10:58] LABS: BUN/Creatinine Ratio 21 (6-26); Blood Urea Nitrogen 26 mg/dL (8-23); Calcium 8.3 mg/dL (8.6-10.3); Carbon Dioxide 26 mEq/L (23-29); Chloride 105 mEq/L (98-107); Glucose 193 mg/dL (70-105); Osmolality,Calculated 298 (280-300); Phosphorous 4.3 mg/dL (2.7-4.5); Potassium 3.7 mEq/L (3.5-5.1); Sodium 139 mEq/L (136-145); eGFR For Non-African Americans 59 (> 60)
[2018-07-04 10:59] LABS: Albumin 2.8 g/dL (3.5-5.7); Bilirubin,Direct 0.2 mg/dL (0.0-0.2); Bilirubin,Indirect 0.3 mg/dL (0.0-1.2); Bilirubin,Total 0.5 mg/dL (0.3-1.0); Globulin 2.7 g/dL (2.4-3.5); Total Protein 5.5 g/dL (6.4-8.9)
[2018-07-04] MEDS ORDERED: Insulin LISPRO 300 UNITS/3 ML VIAL SQ SCH (12:00)
[2018-07-04] MEDS: FentaNYL (PF) 1,000 MCG in 0.9 % Sodium Chloride 80 ML IVC SCH (13:42)
--- NOTE | 2018-07-04 14:16 | Event Note ---
Date of Encounter: 07/04/18 Time of Encounter: 14:12 Family wishes discussed with patient's and RN at bedside. Family has decided to proceed with rewarming protocol and withdrawing life support care to allow patient to pass peacefully. Code status changed to DNR-Comfort Care. Attending, Dr. Roberts notified.
[2018-07-04] MEDS ORDERED: *HR* LORazepam 2 MG/ML VIAL IVP PRN (17:01)
[2018-07-04 17:10] VITALS: BP 141/83
[2018-07-04] MEDS ORDERED: Aminoglycoside Consult 1 EACH MC ONE (17:36)
--- NOTE | 2018-07-04 17:54 | Death Note ---
<Pj Mancilla - Last Filed: 07/04/18 17:41> Discharge Sum: Summary - Date and Time Date of admission: 07/03/18 12:43 Date of : 07/04/18 Time of : 17:37 - Summary Details: Mr. Botello is a 63-year-old male who initially presented to [facility] emergency room following a cardiac arrest. ROSC was obtained via EMS on transport however he again lost pulse and CPR was again initiated in the [facility] emergency department. ROSC was again obtained in the [facility] emergency department and he was intubated while in route. He was transferred to [facility] intensive care unit for further management. Upon arrival, patient remained intubated and sedated and was placed on the ventilator. He did have a central venous catheter placed for labile blood pressures. Laboratory results were significant for elevated troponin, leukocytosis, acute kidney injury, lactic acidosis, respiratory acidosis with a pH of 7.04 and CO2 of 90. Chest x- ray and CT of the chest showed evidence of pulmonary vascular congestion in the setting of known congestive heart failure. CT of the head showed chronic changes with no acute process. He was started on empiric broad-spectrum antibiotics as well as diuretics. Hypothermia protocol was initiated. EEG was obtained and neurology was consulted. EEG showed evidence of burst suppression which was likely indicative of severe anoxic brain injury and very poor prognosis. After discussing with the family, the patient's and power of sports attorney did elect to pursue conservative management. After a family meeting, t he decision was made to change patient's CODE STATUS to comfort care measures. Patient did undergo rewarming. At 1730 on 07/04/18 patient was extubated per the family's wishes and he was given Ativan and fentanyl for comfort measures. At approximately 1737, physician was called to the room as telemetry revealed loss of a heart rhythm. Auscultation revealed no breath sounds or heart sounds. Pupils were fixed and dilated. No pulse was palpated in the carotid arteries. Time of was determined to be 1737. Family was at bedside and all questions were answered. Likely cause at this point was cardiac arrest - Additional Data Confirmation of as documented by pronouncing clinician: no pulse, no respirations, no heart sounds, pupils fixed and dilated Family: at bedside Attending physician: Fan Roberts MD Was code activated?: No Autopsy requested?: No architectural examiner notified?: No Organ bank notified?: Yes Advance directives: No Hospice patient?: No Discharge Sum: Diag - PCOD Probable Cause of : Cardiac arrest Discharge Sum: Prov - Provider Primary care physician: PCP NONE Admitting clinician: Fan Roberts Consults: 07/03/18 14:01 Consult to Neurology [CONS] Routine Consulting Provider: [facility] Reason for Consult: s/p cardiac arrest, non purposeful movements Call Completed: Yes 07/03/18 16:16 Consult to Interpret Exam [CONS] Routine Consulting Provider: Fareed Armando Consult to Interpret Exam: Interpret EEG Pronouncing clinician: Pj Mancilla <Fan Roberts - Last Filed: 07/05/18 11:00> Discharge Sum: Summary - Date and Time Date of admission: 07/03/18 12:43 - Summary Details: I agree with the above documentation with some additional comments patient developed severe anoxic brain injury with poor prognostic clinical manifestation and ancillary testing EEG showed burst suppressive pattern which is the worst prognostic rhythm since patient has low probability for meaningful recovery according to the patient wishes family changed his goals of care to comfort care. - Additional Data Attending physician: Fan Roberts MD Discharge Sum: Prov - Provider Primary care physician: PCP NONE Consults: 07/03/18 14:01 Consult to Neurology [CONS] Routine Consulting Provider: [facility] Reason for Consult: s/p cardiac arrest, non purposeful movements Call Completed: Yes 07/03/18 16:16 Consult to Interpret Exam [CONS] Routine Consulting Provider: Fareed Armando Consult to Interpret Exam: Interpret EEG
--- NOTE | 2018-07-06 17:42 | Electrocardiograph Report ---
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
== END 2018-07-04 17:37 | disposition expired | DRG 196 ==
LOC: ICNU 12:43
PROVIDERS: ADMIT Internal Medicine Pulmonary Disease; ATTEND Internal Medicine Pulmonary Disease